=== PATIENT | female | born 1995 | race Caucasian/White ===

== ENCOUNTER 2017-04-18 16:04 | Observation (INO) | payer OTHER, SELFPAY ==
[2017-04-18 16:09] VITALS: BP 140/80; PULSE 98; RESP 20; TEMP 36.7; O2SAT 100; BMI 24.0
--- NOTE | 2017-04-18 16:30 | HMH.EDABDPAI ---
ED Disposition Clinical Impression: Right lower quadrant abdominal pain, Second trimester Disposition: Xfer Short-Term Hosp Condition on Discharge: Good Instructions: DI for Acute Abdomen - Critical Care Critical Care Time: No Attestation: On , the high probability of a clinically significant, sudden or life threatening deterioration of the following system(s) required my full and direct attention, intervention and personal management. The time I documented below is in addition to time spent performing reported procedures but includes the following listed in this critical care notation. Medical Decision Making Vital Signs: 04/18/17 16:09 Temperature 98.0 F Temperature Source Oral Pulse Rate [Right Brachial] 98 H Respiratory Rate 20 Blood Pressure [Right Arm] 140/80 Blood Pressure Mean [Right Arm] 100 Blood Pressure Source [Right Arm] Automatic Cuff Blood Pressure Position [Right Arm] Sitting 02 Sat by Pulse Oximetry 100 Oxygen Delivery Method Room Air - Lab Data Lab Results 04/18/17 16:25: Urine HCG, Qual Positive 04/18/17 16:34: Urine Color Yellow, Urine Appearance Sl cloudy, Urine pH 7.5, Ur Specific [place] 1.020, Urine Protein Negative, Urine Glucose (UA) Negative, Urine Ketones Negative, Urine Blood Negative, Urine Nitrate Positive, Urine Bilirubin Negative, Urine Urobilinogen 0.2, Ur Leukocyte Esterase Trace, Urine WBC 10-20, Ur Squamous Epith Cells 5-10, Urine Bacteria 4+ Orders (Tests/Meds): ED MEDICATIONS Generic Name Dose Route Start Last Admin Trade Name Freq PRN Reason Stop Dose Admin Sodium Chloride 1,000 mls @ 999 mls/hr 04/18/17 17:00 Sod Chlor 0.9% 1000ml Bag IV 04/18/17 18:00 .Q1H1M COUNT INCLUDES THE [facility] ORDERS Category Date Time Status CMP [Comprehensive Metabolic Panel] Stat Lab 04/18/17 16:47 Ordered Complete Blood Count Auto Diff Stat Lab 04/18/17 16:47 Ordered Urine Culture Stat Micro 04/18/17 16:34 Received - Jaime Inquiry Pt receiving controlled substance: No Jaime was queried for this patient: No Medical Decision Making Narrative: I called OB Dr. Haynes on-call who recommended MRI vs US. I spoke with Dr. Courtney the surgeon infection control preventionist who recommended to get an MRI by [facility]. I called Dr. Erika Thomas who accepted the patient at ER for an MRI. The patient and her mother kept updated and they are aware of the transfer plan and the purpose of transfer. Abdominal Pain HPI - General Chief Complaint: Abdominal Pain Stated Complaint: 17 Weeks Preg. Abd Pain Mode of Arrival: Ambulatory Limitations: No Limitations Description of Symptoms (Recalled from ER Triage Doc. by RN): Pt reports sharp intermittent pain in umbilicus area that pt reports happens mainly with movement. states pain has been happening for approx 1 week, pt reports she is 17 weeks . Reports V/D today - History of Present Illness HPI narrative: 22 years old white female 1 para 0 A0. She is 17 weeks , she has been experiencing sharp periumbilical pain for the past week, no bowel movements for 3 days, until this morning when she vomited ?3 and had one bout of loose stool. Patient denies having hemoptysis hematemesis coffee-ground emesis bleeding per rectum or melanotic stool. MD complaint: abdominal pain Onset (ago): day(s) (7 days.) Quality: sharp Radiation: other (jonny- Umbilical) Migration to: no migration Relieving factors: nothing Exacerbating factors: other (sitting and pressure.) Associated symptoms: denies other symptoms - Related Data Home Medications Medication Instructions Recorded Confirmed Vit37/Iron/Folic Acid 1 each PO DAILY 04/18/17 04/18/17 [Prenata Chewable Tablet] Allergies Allergy/AdvReac Type Severity Reaction Status Date / Time No Known Allergies Allergy Unverified 02/16/17 14:19 [facility] History I have reviewed the patient's past medical history: Yes Medi
--- NOTE | 2017-04-18 16:32 | PC.NURSE ---
AILEEN DAVALOS speaking with Dr. Gonzalez, gas station attendant OB
--- NOTE | 2017-04-18 16:35 | PC.NURSE ---
At bs with ER MD at this time, ER MD performed bimanual pelvic exam
[2017-04-18 16:36] LABS: Microscopic, Urine URINE MICROSCOPIC (MICROSCOPIC)
--- NOTE | 2017-04-18 16:36 | ED_ITS ---
ED Disposition Clinical Impression: Right lower quadrant abdominal pain, Second trimester Disposition: Xfer Short-Term Hosp Condition on Discharge: Good Instructions: DI for Acute Abdomen - Critical Care Critical Care Time: No Attestation: On , the high probability of a clinically significant, sudden or life threatening deterioration of the following system(s) required my full and direct attention, intervention and personal management. The time I documented below is in addition to time spent performing reported procedures but includes the following listed in this critical care notation. Medical Decision Making Vital Signs: 04/18/17 16:09 Temperature 98.0 F Temperature Source Oral Pulse Rate [Right Brachial] 98 H Respiratory Rate 20 Blood Pressure [Right Arm] 140/80 Blood Pressure Mean [Right Arm] 100 Blood Pressure Source [Right Arm] Automatic Cuff Blood Pressure Position [Right Arm] Sitting 02 Sat by Pulse Oximetry 100 Oxygen Delivery Method Room Air - Lab Data Lab Results 04/18/17 16:25: Urine HCG, Qual Positive 04/18/17 16:34: Urine Color Yellow, Urine Appearance Sl cloudy, Urine pH 7.5, Ur Specific [place] 1.020, Urine Protein Negative, Urine Glucose (UA) Negative, Urine Ketones Negative, Urine Blood Negative, Urine Nitrate Positive, Urine Bilirubin Negative, Urine Urobilinogen 0.2, Ur Leukocyte Esterase Trace, Urine WBC 10-20, Ur Squamous Epith Cells 5-10, Urine Bacteria 4+ Orders (Tests/Meds): ED MEDICATIONS Generic Name Dose Route Start Last Admin Trade Name Freq PRN Reason Stop Dose Admin Sodium Chloride 1,000 mls @ 999 mls/hr 04/18/17 17:00 Sod Chlor 0.9% 1000ml Bag IV 04/18/17 18:00 .Q1H1M [facility] ORDERS Category Date Time Status CMP [Comprehensive Metabolic Panel] Stat Lab 04/18/17 16:47 Ordered Complete Blood Count Auto Diff Stat Lab 04/18/17 16:47 Ordered Urine Culture Stat Micro 04/18/17 16:34 Received - Jaime Inquiry Pt receiving controlled substance: No Jaime was queried for this patient: No Medical Decision Making Narrative: I called OB Dr. Haynes on-call who recommended MRI vs US. I spoke with Dr. Courtney the surgeon biodiesel production associate who recommended to get an MRI by [facility]. I called Dr. Erika Thomas who accepted the patient at ER for an MRI. The patient and her mother kept updated and they are aware of the transfer plan and the purpose of transfer. Abdominal Pain HPI - General Chief Complaint: Abdominal Pain Stated Complaint: 17 Weeks Preg. Abd Pain Mode of Arrival: Ambulatory Limitations: No Limitations Description of Symptoms (Recalled from ER Triage Doc. by RN): Pt reports sharp intermittent pain in umbilicus area that pt reports happens mainly with movement. states pain has been happening for approx 1 week, pt reports she is 17 weeks . Reports V/D today - History of Present Illness HPI narrative: 22 years old white female 1 para 0 A0. She is 17 weeks , she has been experiencing sharp periumbilical pain for the past week, no bowel movements for 3 days, until this morning when she vomited ?3 and had one bout of loose stool. Patient denies having hemoptysis hematemesis coffee-ground emesis bleeding per rectum or melanotic stool. MD complaint: abdominal pain Onset (ago): day(s) (7 days.) Quality: sh
[2017-04-18 16:38] LABS: Appearance,Urine SL CLOUDY (Clear); Bilirubin,Urine Negative (Negative); Blood, Urine Negative (Negative); Color,Urine YELLOW (Yellow); Glucose,Urine (UA) Negative (Negative); Ketones,Urine Negative (Negative); Leukocyte Esterase,Urine TRACE (Negative); Nitrate,Urine POSITIVE (Negative); PH,Urine 7.5 (5.0-8.5); Protein,Urine Negative (Negative); Urobilinogen,Urine 0.2 EU/dl (0.2)
[2017-04-18 16:45] LABS: Urine Pregnancy, HCG Qual. Positive (Negative)
[2017-04-18 16:45] LABS: Bacteria,Urine 4+ /lpf
--- NOTE | 2017-04-18 16:46 | PC.NURSE ---
AILEEN DAVALOS speaking with DR. Gonzalez, surgeon certified rehabilitation counselor
--- NOTE | 2017-04-18 16:57 | PC.NURSE ---
cathy pillai spoke with dr byers at who accepted pt.
--- NOTE | 2017-04-18 17:08 | PC.NURSE ---
on ob Dr. Gonzalez at bedside at this time.
[2017-04-18 17:10] LABS: Basophils % 0.2 % (0.1-2.0); Eosinophils # 0.1 K/mm3 (0.0-0.4); Eosinophils % 1.5 % (0.1-12.0); Hematocrit 35.1 % (37.0-47.0); Lymphocytes # 2.1 K/mm3 (0.7-4.5); Mean Corpuscular HGB Conc 34.1 g/dL (31.8-35.4); Mean Corpuscular Hemoglobin 30.7 pg (27.0-31.2); Mean Platelet Volume 9.1 fl (7.4-10.4); Monocytes # 0.4 K/mm3 (0.1-1.0); Monocytes % 5.1 % (1.7-9.3); Neutrophils # 5.2 K/mm3 (1.8-7.8); Neutrophils % 66.3 % (37.0-80.0); Platelet Count 184 K/mm3 (142-424); White Blood Count 7.8 K/mm3 (4.8-10.8)
[2017-04-18 17:27] LABS: Alanine Aminotransferase 20 U/L (12-78); Albumin Level 3.3 gm/dL (3.4-5.0); Albumin/Globulin Ratio 0.8 (1.1-1.8); Alkaline Phosphatase 75 U/L (46-116); Aspartate Amino Transferase 10 U/L (15-37); Bilirubin,Total 0.2 mg/dL (0.2-1.0); Blood Urea Nitrogen 12 mg/dL (7-18); Calcium 9.1 mg/dL (8.5-10.1); Carbon Dioxide 25 mmol/L (21.0-32.0); Chloride 101 mmol/L (98-107); Creatinine Clearance Estimated 178 mL/min (0-300); Estimated Glomerular Filt Rate 156 ml/min (>60); GFR (African American) 188 ML/MIN (>60); Glucose 92 mg/dL (74-106); Sodium 134 mmol/L (136-145); Total Protein,Serum 7.3 gm/dL (6.4-8.2)
--- NOTE | 2017-04-18 17:38 | HMH.OBAPHP ---
OB - H&P: HPI Antepartum - History of Present Illness Chief complaint: One week history of worsening right lower quadrant pain with 2days N/V/D Comments: Pt reports pain worse with movement. Positive pain with urination. + frequency. N/V/D x 2 days. Previously had been constipated. No anorexia. No FM felt as yet. One ultrasound thus far in . - History of Present Criteria for establishing EDC:: LMP confirmed by 1st trimester US care: other Obstetrical complications: none Medical complications: none [facility] History I have reviewed the patient's past medical history: Yes (Non-contributory) Medical History: Denies:: Asthma, Diabetes Mellitus Type 1, Diabetes Mellitus Type 2, Hypertension Other Medical History: Reports: Anemia Other Surgeries: Yes: No Previous Surgery - *Social History Smoking Status: Current every day smoker Tobacco Type: cigarettes Alcohol Intake: never - Psychiatric History Expresses thoughts of harming self/others: None Suicide Plan Description: No Plan *Family Hx:: No significant family history : 1 Para: 0 LMP comments: (Pt has received care at [facility]) Review of Systems - Review of Systems Review of systems:: pertinent systems reviewed and negative unless documented below - *Gastrointestinal Reports abdominal pain, Reports change in stools, Reports constipation, Reports loose stools, Reports nausea Meds Home Medications Medication Instructions Recorded Confirmed Type Vit37/Iron/Folic Acid 1 each PO DAILY 04/18/17 04/18/17 History [Prenata Chewable Tablet] Allergies Allergy/AdvReac Type Severity Reaction Status Date / Time No Known Allergies Allergy Unverified 02/16/17 14:19 OB - H&P: Exam - Physical Exam Vital signs: Temp Pulse Resp BP Pulse Ox 98.0 F 98 H 20 140/80 100 04/18/17 16:09 04/18/17 16:09 04/18/17 16:09 04/18/17 16:09 04/18/17 16:09 - Routine Abdominal Exam Present: tenderness. Absent: distended, rebound, guarding Comments: mild TTP RLQ - Routine Exam Comments: Performed by ER physician - Routine Back/Spine/Pelvis Exam Back/Spine: Present: CVA tenderness (mild CVAT right side) OB - A/P Antepartum (1) Right lower quadrant abdominal pain Current visit: Yes Status: Acute 22 yo at 17 weeks per patient with 1 week history of right lower quadrant pain and 2 day history of N/V/D. Previously has had constipation. Also reports pain with urination for several days. No F/C. Normal appetite. Exam and U/A results consistent with mild pyelo. Given likely pyelo (and possible appendicitis), will admit overnight for IV Rocephin. If does not improve, can readdress possibility of appendicitis. Recommend IVH at 125cc/hr Regular diet Doptones q shift IV Rocephin q 24hrs Ultrasound for dating/anatomy in am
--- NOTE | 2017-04-18 17:41 | P.HP_ITS ---
OB - H&P: HPI Antepartum - History of Present Illness Chief complaint: One week history of worsening right lower quadrant pain with 2days N/V/D Comments: Pt reports pain worse with movement. Positive pain with urination. + frequency. N/V/D x 2 days. Previously had been constipated. No anorexia. No FM felt as yet. One ultrasound thus far in . - History of Present Criteria for establishing EDC:: LMP confirmed by 1st trimester US care: other Obstetrical complications: none Medical complications: none [facility] History I have reviewed the patient's past medical history: Yes (Non-contributory) Medical History: Denies:: Asthma, Diabetes Mellitus Type 1, Diabetes Mellitus Type 2, Hypertension Other Medical History: Reports: Anemia Other Surgeries: Yes: No Previous Surgery - *Social History Smoking Status: Current every day smoker Tobacco Type: cigarettes Alcohol Intake: never - Psychiatric History Expresses thoughts of harming self/others: None Suicide Plan Description: No Plan *Family Hx:: No significant family history : 1 Para: 0 LMP comments: (Pt has received care at [facility] ) Review of Systems - Review of Systems Review of systems:: pertinent systems reviewed and negative unless documented below - *Gastrointestinal Reports abdominal pain, Reports change in stools, Reports constipation, Reports loose stools, Reports nausea Meds Home Medications Medication Instructions Recorded Confirmed Type Vit37/Iron/Folic Acid 1 each PO DAILY 04/18/17 04/18/17 History [Prenata Chewable Tablet] Allergies Allergy/AdvReac Type Severity Reaction Status Date / Time No Known Allergies Allergy Unverified 02/16/17 14:19 OB - H&P: Exam - Physical Exam Vital signs: Temp Pulse Resp BP Pulse Ox 98.0 F 98 H 20 140/80 100 04/18/17 16:09 04/18/17 16:09 04/18/17 16:09 04/18/17 16:09 04/18/17 16:09 - Routine Abdominal Exam Present: tenderness. Absent: distended, rebound, guarding Comments: mild TTP RLQ - Routine Exam Comments: Performed by ER physician - Routine Back/Spine/Pelvis Exam Back/Spine: Present: CVA tenderness (mild CVAT right side) OB - A/P Antepartum (1) Right lower quadrant abdominal pain Current visit: Yes Status: Acute 22 yo at 17 weeks per patient with 1 week history of right lower quadrant pain and 2 day history of N/V/D. Previously has had constipation. Also reports pain with urination for several days. No F/C. Normal appetite. Exam and U/A results consistent with mild pyelo. Given likely pyelo (and possible appendicitis), will admit overnight for IV Rocephin. If does not improve, can readdress possibility of appendicitis. Recommend IVH at 125cc/hr Regular diet Doptones q shift IV Rocephin q 24hrs Ultrasound for dating/anatomy in am
--- NOTE | 2017-04-18 17:59 | PC.NURSE ---
Verbal report given to MARY KATE Neely on OB at this time.
[2017-04-18 18:04] LABS: Lactic Acid 0.7 mmol/L (0.4-2.0)
[2017-04-18 18:40] VITALS: BP 135/63; PULSE 89; RESP 18; TEMP 36.7; O2SAT 98
[2017-04-18 19:00] VITALS: BP 121/63; PULSE 83; RESP 18; TEMP 36.7; O2SAT 100; BMI 22.0
[2017-04-19 06:54] LABS: Basophils % 0.2 % (0.1-2.0); Eosinophils # 0.2 K/mm3 (0.0-0.4); Eosinophils % 2.3 % (0.1-12.0); Hematocrit 31.9 % (37.0-47.0); Hemoglobin 10.9 g/dL (12.2-16.2); Lymphocytes # 2.1 K/mm3 (0.7-4.5); Lymphocytes % 32.4 K/mm3 (10-50); Mean Corpuscular HGB Conc 34.1 g/dL (31.8-35.4); Mean Corpuscular Hemoglobin 30.9 pg (27.0-31.2); Mean Corpuscular Volume 90.4 fl (81-99); Mean Platelet Volume 8.8 fl (7.4-10.4); Monocytes # 0.3 K/mm3 (0.1-1.0); Monocytes % 5.1 % (1.7-9.3); Neutrophils # 3.9 K/mm3 (1.8-7.8); Neutrophils % 59.9 % (37.0-80.0); Platelet Count 165 K/mm3 (142-424); Red Blood Count 3.52 M/mm3 (4.20-5.40); Red Cell Distribution Width 13.1 % (11.5-17.5); White Blood Count 6.5 K/mm3 (4.8-10.8)
[2017-04-19 07:02] LABS: Anion Gap 10.9 mEq/L (5-15); Blood Urea Nitrogen 9 mg/dL (7-18); Carbon Dioxide 23 mmol/L (21.0-32.0); Chloride 106 mmol/L (98-107); Creatinine Clearance Estimated 190 mL/min (0-300); Creatinine,Serum 0.43 mg/dL (0.55-1.02); Estimated Glomerular Filt Rate 185 ml/min (>60); GFR (African American) 224 ML/MIN (>60); Glucose 91 mg/dL (74-106); Potassium 3.9 mmoL/L (3.5-5.1); Sodium 136 mmol/L (136-145)
[2017-04-19 08:00] VITALS: BP 107/58; PULSE 74; RESP 18; TEMP 37.1; O2SAT 100
--- NOTE | 2017-04-19 08:00 | US_ITS ---
Exams today include: 1. US OB >= 14 weeks Fetus, 2. Ultrasound kidneys / US retroperitoneal comp 3. US RLQ Ordering Physician: Erik Smalls MD HISTORY 22 years: Female: ITS.REASON: us for dates/anatomy. Right lower quadrant pain. TECHNIQUE/studies: 1 Transabdominal pelvic ultrasound / ultrasound transabdominal scanning 2. Additional Ultrasound images and evaluation region of pain towards RLQ. 3. Bilateral renal ultrasound COMPARISON :None relevant US OB >= 14 weeks Fetus, Single viable intrauterine gestation currently in breech position. Placenta is anterior. Fetus is active anatomy as well seen within normal limits. Normal amount fluid. Close cervix appears overall satisfactory, measuring 3.2 cm in length. Limited survey at this early point in gestation was performed and was unremarkable on the submitted images as in PACS. No discrete anomalies identified on survey imaging by technologist. Active fetus.Three-vessel cord with satisfactory umbilical cord insertion. Survey of brain & ventricles & early images posterior fossa unremarkable neck survey unremarkable.. Limited images of face at this early gestation unremarkable. Cardiac activity documented. Vague images at four-chamber heart in this early gestation included... Abdomen: Both kidneys noted and unremarkable. Stomach noted and satisfactory. Spine Limited images Survey of the spine unremarkable.. Appears to be a male fetus Both arms and legs noted.Amniotic Fluid: Adequate. Maternal adnexa: No significant incidental findings findings encountered. Measurements: Average ultrasound age 17 weeks 0 day. Gestational Age 16 weeks 6 days based on LMP 12/22/2016. Estimated due date by ultrasound age 709/27/2017. Estimated weight currently admitted 175-g +/- 26 grams. BPD = 17 week 1 day OFD = 17 week 4 day HC = 17 week 0 day AC = 17 week 3 day FL = 16 we 3 day Heart Rate = 155 . HC/AC = 1.14.(1.09-1.26.) CI = 75%.(70-86%). FL/BPD is 60%. FL/AC is 18%. ----IMPRESSION 17 week 0 day average ultrasound age breech position Active fetus . Limited Anatomical survey unremarkable & WNL BILATERAL RENAL ULTRASOUND: Ultrasound both kidneys performed kidneys appear satisfactory bilaterally with no significant hydronephrosis or mass. Cortex well-maintained bilaterally with normal color Doppler flow bilateral RIGHT KIDNEY the pelvicalyceal structures are very slightly more generous than the right than left which could reflect some very early hydronephrosis of changes but unimpressive and still within normal limits. Right kidney measures 9.2 x 3.8 x 7 cm LEFT KIDNEY appears normal measures 11 point for x4.2 x 5.5 cm. ---IMPRESSION. Kidneys appear normal bilaterally with the right pelvicalyceal system only slightly more generous than the left May reflect scant early hydronephrosis of changes Right Lower Quadrant Ultrasound Survey was included Imaging here is limited. No generous stool throughout right colon. More echogenic stool at the mid right colon with more hypoechoic Semisolid stool towards the ileocecal valve region and tip of the cecum. Also note some liquid along posterior cecum region.-Curious appearance here in the pain progresses this may require follow-up. However no findings highly suspect for abscess or definite appendicitis.. . No area of focal wall thickening.Note normal white count Patient did have some rebound with scanning this region thus warrants close clinical follow-up will be important.. Findings were discussed with both Dr. Pizarro and Dr. Smalls.. Images document Fluid-filled distal small bowel loops wi
--- NOTE | 2017-04-19 08:04 | PC.NURSE ---
PATIENT NOW LEAVING OFF THE UNIT WITH ASHLEY FROM RADIOLOGY FOR HER US OF THE FETUS AND HER KIDNEYS.
--- NOTE | 2017-04-19 08:55 | PC.NURSE ---
PATIENT IS NOW BACK FROM RADIOLOGY, THE RESULTS WILL BE CALLED TO DR. HAMILTON, THE US DID SHOW THAT THE BABY IS A BOY.
--- NOTE | 2017-04-19 11:48 | P.DS_ITS ---
General - General Admission date: 04/18/17 Discharge date: 04/19/17 HPI HPI: She is a 22-year-old 1 now para 0 who was 17 weeks gestational age. She has not had any care. She had a 2 history of nausea vomiting and dehydration. She had dysuria. She has a history of constipation. Objective Vital signs: Temp Pulse Resp BP Pulse Ox 98.7 F 74 18 107/58 100 04/19/17 08:00 04/19/17 08:00 04/19/17 08:00 04/19/17 08:00 04/19/17 08:00 no acute distress Hospital Course Hospital Course: She received IV fluids as well as IV Rocephin. She ultrasound today that was essentially normal. There was no evidence of hydronephrosis and her appendix although not well visualized on ultrasound did not appear to be prominent. She still has some mild right lower quadrant pain but she also has constipation. She denies any fever or chills. Her blood cell count. She will be discharged home to follow-up with me in a couple weeks time. She was given instructions to return if she has worsening of her right lower quadrant pain. We still cannot rule out appendicitis. She is however eating and drinking and ambulating now. Results Labs on day of discharge: Labs from last 24 hours 04/19/17 04/19/17 06:30 06:30 WBC 6.5 RBC 3.52 L Hgb 10.9 L Hct 31.9 L MCV 90.4 MCH 30.9 MCHC 34.1 RDW 13.1 Plt Count 165 MPV 8.8 Neut % (Auto) 59.9 Lymph % (Auto) 32.4 [place] % (Auto) 5.1 Eos % (Auto) 2.3 Baso % (Auto) 0.2 Neut # (Auto) 3.9 Lymph # (Auto) 2.1 [place] # (Auto) 0.3 Eos # (Auto) 0.2 Baso # (Auto) 0.0 Sodium 136 Potassium 3.9 Chloride 106 Carbon Dioxide 23 Anion Gap 10.9 BUN 9 Creatinine 0.43 L Estimated Creat Clear 190 Estimated GFR 185 Est GFR ( Amer) 224 Glucose 91 Discharge Plan - Patient Discharge Instructions ACTIVITY: Continue current activity DIET: continue same diet - Follow up Plan Follow up with: Alex Hodges MD [Staff Physician] - Disposition: Home, Self-[facility] Medications: Home Medications Medication Instructions Recorded Confirmed Type Vit37/Iron/Folic Acid 1 each PO DAILY 04/18/17 04/18/17 History [Prenata Chewable Tablet] Prescriptions/Medication Reconciliation: Continue Vit37/Iron/Folic Acid [Prenata Chewable Tablet] 1 each PO DAILY
[2017-04-19 12:20] LABS: Basophils % 0.1 % (0.1-2.0); Eosinophils # 0.1 K/mm3 (0.0-0.4); Eosinophils % 1.8 % (0.1-12.0); Hematocrit 31.5 % (37.0-47.0); Hemoglobin 10.9 g/dL (12.2-16.2); Lymphocytes # 1.7 K/mm3 (0.7-4.5); Lymphocytes % 26.4 K/mm3 (10-50); Mean Corpuscular HGB Conc 34.7 g/dL (31.8-35.4); Mean Corpuscular Volume 89.5 fl (81-99); Mean Platelet Volume 9.1 fl (7.4-10.4); Monocytes # 0.3 K/mm3 (0.1-1.0); Monocytes % 4.1 % (1.7-9.3); Neutrophils # 4.3 K/mm3 (1.8-7.8); Neutrophils % 67.6 % (37.0-80.0); Platelet Count 182 K/mm3 (142-424); Red Blood Count 3.52 M/mm3 (4.20-5.40); White Blood Count 6.4 K/mm3 (4.8-10.8)
[2017-04-20 08:21] LABS: HIV Screen 4th Generation wRfx Non Reactive (Non Reactive)
[2017-04-21 06:37] LABS: Hepatitis C Antibody 0.2 s/co ratio (0.0-0.9)
[2017-04-21 06:38] LABS: Hepatitis B Surface Antigen Negative (Negative); Rapid Plasma Reagin Ab Titer Non Reactive (NonRea<1:1); Rubella Antibodies, IgG <0.90 index (Immune >0.99)
== END 2017-04-19 12:53 | disposition home or self-care (01) ==
LOC: ER 16:58 → OB 17:20
PROVIDERS: Nurse Practitioner Obstetrics & Gynecology; Admitting Provider Obstetrics & Gynecology; Emergency Provider Emergency Medicine; Visit Provider Obstetrics & Gynecology
DX: R30.0 Dysuria (principal); O21.0 Mild hyperemesis gravidarum; Z3A.17 17 weeks gestation of pregnancy; Z11.4 Encounter for screening for human immunodeficiency virus [HIV]
CPT/HCPCS: 36415; 76770; 76805; 80048; 80053; 81001; 81025; 83605; 85025; 86592; 86703; 86762; 86850; 87040; 87086; 87088; 87186; 87340; 87380; 96365; 96367; 96374; 99283; G0378; G0432

== ENCOUNTER → 2017-05-13 14:52 | Outpatient (CLI) | payer OTHER, SELFPAY ==
--- NOTE | 2017-05-13 14:57 | US_ITS ---
US OB /maternal detail: INDICATION: Anatomy scan evaluation ITS.REASON: US OB Complete ORDERING PHYSICIAN: Alex Hodges MD PATIENT AGE: 22 years TECHNIQUE: ultrasound transabdominal scanning. COMPARISON: No previous relevant studies. FINDINGS: Single viable intrauterine gestation. breech position. Placenta: anterior placenta grade 1. There is adequate amount fluid. The cervix appears satisfactory. Closed and measuring 3 cm in length. Complete survey performed and was unremarkable on the submitted images as in PACS. No discrete anomalies identified on survey imaging by technologist. Active fetus. Three-vessel cord with satisfactory umbilical cord insertion. 4- chamber heart noted. Survey of brain & ventricles. Face and neck survey unremarkable. Diaphragm and chest views unremarkable. Abdomen: Both kidneys noted and unremarkable. Stomach noted and satisfactory. Spine: Survey of the spine satisfactory with no anomalies identified nor imaged. Both arms and legs noted. Amniotic Fluid: Adequate. Maternal adnexa: No significant findings. Measurements: Average ultrasound age 20w4d. Gestational Age 20w2d. Estimated due date by ultrasound age 0709/26/2017. Estimated weight 367 grams. This is 66 percentile BPD = 20w5d OFD = 21w0d HC = 20w1d AC = 21w0d FL = 20w3d Heart Rate = 144 Cerebellum = 21w0d Humerus = 20w5d HC/AC is 1.11 (1.09-1.26). CI is 77% (70-86%). FL/BPD is 69%. FL/AC is 21%. IMPRESSION: Live intrauterine at 20 weeks 4 days with an estimated due date of 09/26/2017. Fetus is in breech position and is active. No anatomical abnormalities apparent. Anterior placenta. See above for detail
[2017-05-13 16:51] LABS: Basophils % 0.2 % (0.1-2.0); Eosinophils # 0.1 K/mm3 (0.0-0.4); Eosinophils % 1.9 % (0.1-12.0); Hematocrit 33.2 % (37.0-47.0); Lymphocytes # 1.5 K/mm3 (0.7-4.5); Lymphocytes % 23.5 K/mm3 (10-50); Mean Corpuscular HGB Conc 33.3 g/dL (31.8-35.4); Mean Corpuscular Hemoglobin 31.2 pg (27.0-31.2); Mean Corpuscular Volume 93.7 fl (81-99); Monocytes # 0.4 K/mm3 (0.1-1.0); Monocytes % 5.4 % (1.7-9.3); Neutrophils # 4.5 K/mm3 (1.8-7.8); Neutrophils % 69.1 % (37.0-80.0); Platelet Count 175 K/mm3 (142-424); Red Blood Count 3.54 M/mm3 (4.20-5.40); Red Cell Distribution Width 13.1 % (11.5-17.5); White Blood Count 6.5 K/mm3 (4.8-10.8)
[2017-05-15 18:27] LABS: HIV Screen 4th Generation wRfx Non Reactive (Non Reactive); Hepatitis B Surface Antigen Negative (Negative); Hepatitis C Antibody <0.1 s/co ratio (0.0-0.9); Rapid Plasma Reagin Ab Titer Non Reactive (NonRea<1:1); Rubella Antibodies, IgG <0.90 index (Immune >0.99)
== END ==
PROVIDERS: Visit Provider Nurse Practitioner Obstetrics & Gynecology
DX: Z36.0 Encounter for antenatal screening for chromosomal anomalies (principal); Z34.90 Encounter for supervision of normal pregnancy, unspecified, unspecified trimester
CPT/HCPCS: 36415; 76811; 85025; 86592; 86703; 86762; 86850; 87340; 87380; G0432

== ENCOUNTER 2017-05-23 21:04 | Outpatient (CLI) | payer OTHER, SELFPAY ==
[2017-05-23 21:19] VITALS: BMI 22.6
[2017-05-23 21:34] LABS: Microscopic, Urine URINE MICROSCOPIC (MICROSCOPIC)
[2017-05-23 21:37] LABS: Appearance,Urine CLOUDY (Clear); Bilirubin,Urine Negative (Negative); Blood, Urine Negative (Negative); Color,Urine YELLOW (Yellow); Glucose,Urine (UA) Negative (Negative); Ketones,Urine Negative (Negative); Leukocyte Esterase,Urine Negative (Negative); Nitrate,Urine Negative (Negative); PH,Urine 8.5 (5.0-8.5); Protein,Urine Negative (Negative); Urobilinogen,Urine 0.2 EU/dl (0.2)
[2017-05-23 21:43] VITALS: BP 114/69; PULSE 87; RESP 17; TEMP 36.4; O2SAT 98; BMI 22.6
[2017-05-23 21:43] LABS: Amphetamine/Metha Screen,Urine Negative ng/mL (<1000); Barbiturates Screen,Urine Negative ng/mL (<200); Benzodiazepines Screen,Urine Negative ng/mL (200); Cannabinoid Screen,Urine Negative ng/mL (<50); Cocaine Screen,Urine Negative ng/g (<300); Methadone Screen,Urine Negative ng/mL (<300); Opiate Screen,Urine Negative ng/mL (<300); Phencyclidine Screen,Urine Negative ng/mL (<25)
[2017-05-23 21:49] LABS: Amorphous Sediment,Urine 4+ /lpf
== END 2017-05-23 23:15 | disposition home or self-care (01) ==
LOC: OBOUT 21:06 → OB 21:07
PROVIDERS: PCP Family Medicine; Visit Provider Obstetrics & Gynecology
DX: O26.892 Other specified pregnancy related conditions, second trimester (principal); Z3A.21 21 weeks gestation of pregnancy; R10.84 Generalized abdominal pain
CPT/HCPCS: 59025; 80305; 81001

== ENCOUNTER 2017-06-15 20:46 | Outpatient (CLI) | payer OTHER, SELFPAY ==
[2017-06-15 20:49] VITALS: BP 121/69; PULSE 87; RESP 18; TEMP 36.6; O2SAT 99; BMI 24.0
[2017-06-15 21:15] VITALS: BMI 24.7
[2017-06-15 21:26] LABS: Amphetamine/Metha Screen,Urine Negative ng/mL (<1000); Barbiturates Screen,Urine Negative ng/mL (<200); Benzodiazepines Screen,Urine Negative ng/mL (200); Cannabinoid Screen,Urine Negative ng/mL (<50); Cocaine Screen,Urine Negative ng/g (<300); Methadone Screen,Urine Negative ng/mL (<300); Opiate Screen,Urine Negative ng/mL (<300); Phencyclidine Screen,Urine Negative ng/mL (<25)
[2017-06-15 21:28] LABS: Fetal Membrane Rupture (Rapid) Negative (Negative)
[2017-06-15 22:05] LABS: Appearance,Urine SL CLOUDY (Clear); Bilirubin,Urine Negative (Negative); Blood, Urine Negative (Negative); Color,Urine YELLOW (Yellow); Glucose,Urine (UA) Negative (Negative); Ketones,Urine Negative (Negative); Leukocyte Esterase,Urine Negative (Negative); Microscopic, Urine URINE MICROSCOPIC (MICROSCOPIC); Nitrate,Urine Negative (Negative); Protein,Urine Negative (Negative); Urobilinogen,Urine 0.2 EU/dl (0.2)
[2017-06-16 01:00] LABS: Amorphous Sediment,Urine 1+ /lpf; Bacteria,Urine 1+ /lpf
== END 2017-06-15 22:39 | disposition home or self-care (01) ==
LOC: OBOUT 20:48 → OB 20:49
PROVIDERS: PCP Nurse Practitioner Obstetrics & Gynecology; Visit Provider Nurse Practitioner Obstetrics & Gynecology
DX: O42.912 Preterm premature rupture of membranes, unspecified as to length of time between rupture and onset of labor, second trimester (principal); Z3A.25 25 weeks gestation of pregnancy
CPT/HCPCS: 59025; 80305; 81001; 84112; 87086

== ENCOUNTER 2017-07-06 22:33 | Outpatient (CLI) | payer OTHER, SELFPAY ==
[2017-07-06 22:43] VITALS: BMI 24.9
[2017-07-06 22:49] LABS: Appearance,Urine CLEAR (Clear); Bilirubin,Urine Negative (Negative); Blood, Urine 3+ (Negative); Color,Urine YELLOW (Yellow); Glucose,Urine (UA) Negative (Negative); Ketones,Urine Negative (Negative); Leukocyte Esterase,Urine 2+ (Negative); Microscopic, Urine URINE MICROSCOPIC (MICROSCOPIC); Nitrate,Urine Negative (Negative); Protein,Urine TRACE (Negative); Urobilinogen,Urine 0.2 EU/dl (0.2)
[2017-07-06 22:54] VITALS: BP 124/71; PULSE 86; RESP 22; TEMP 36.6; O2SAT 97; BMI 26.4
[2017-07-06 22:58] LABS: Amphetamine/Metha Screen,Urine Negative ng/mL (<1000); Barbiturates Screen,Urine Negative ng/mL (<200); Benzodiazepines Screen,Urine Negative ng/mL (200); Cannabinoid Screen,Urine Negative ng/mL (<50); Cocaine Screen,Urine Negative ng/g (<300); Methadone Screen,Urine Negative ng/mL (<300); Opiate Screen,Urine Negative ng/mL (<300); Phencyclidine Screen,Urine Negative ng/mL (<25)
[2017-07-06 23:03] LABS: Amorphous Sediment,Urine 1+ /lpf; RBC,Urine TNTC #/hpf (0-3); Sperm,Urine OCC /lpf
--- NOTE | 2017-07-06 23:30 | US_ITS ---
US OB limited position: Indication: ITS.REASON: 28 weeks vaginal bleeding and pelvic pain. ORDERING PHYSICIAN: Erik Smalls MD PATIENT AGE: 22 years COMPARISON: 05/13/2017 FINDINGS: There is a single live fetus present in breech presentation. heart and body motion noted with an FHR 1 58 bpm. Cervix is closed and measures 3.4 cm. Placenta is anterior and grade 1. No previa or fraction. BPD corresponds to a gestational age of 27 weeks 2 days. Average amount of amniotic fluid volume. IMPRESSION: Live IUP in breech presentation with a BPD of 27 weeks 2 days. heart and body motion noted. Anterior placenta. No previa or abruption
== END 2017-07-07 00:43 | disposition home or self-care (01) ==
LOC: OBOUT 22:36 → OB 22:37
PROVIDERS: PCP Nurse Practitioner Obstetrics & Gynecology; Visit Provider Obstetrics & Gynecology
DX: O20.9 Hemorrhage in early pregnancy, unspecified (principal); Z3A.28 28 weeks gestation of pregnancy; R10.9 Unspecified abdominal pain
CPT/HCPCS: 59025; 76815; 80305; 81001; 87086

== ENCOUNTER 2017-07-23 22:37 | Outpatient (CLI) | payer OTHER, SELFPAY ==
[2017-07-23 23:06] VITALS: BP 123/71; PULSE 85; RESP 18; TEMP 36.8; BMI 28.2
[2017-07-23 23:34] VITALS: BMI 30.2
[2017-07-23 23:55] LABS: Microscopic, Urine URINE MICROSCOPIC (MICROSCOPIC)
[2017-07-23 23:56] LABS: Appearance,Urine CLEAR (Clear); Bilirubin,Urine Negative (Negative); Blood, Urine Negative (Negative); Color,Urine YELLOW (Yellow); Glucose,Urine (UA) Negative (Negative); Ketones,Urine Negative (Negative); Leukocyte Esterase,Urine Negative (Negative); Nitrate,Urine Negative (Negative); PH,Urine 6.5 (5.0-8.5); Protein,Urine Negative (Negative); Specific Gravity, Urine 1.025 (1.005-1.030)
[2017-07-23 23:58] LABS: Hematocrit 34.2 % (37.0-47.0); Hemoglobin 11.4 g/dL (12.2-16.2)
[2017-07-24] LABS: Amorphous Sediment,Urine Trace /lpf
[2017-07-24 00:03] LABS: Amphetamine/Metha Screen,Urine Negative ng/mL (<1000); Barbiturates Screen,Urine Negative ng/mL (<200); Benzodiazepines Screen,Urine Negative ng/mL (200); Cannabinoid Screen,Urine Negative ng/mL (<50); Cocaine Screen,Urine Negative ng/g (<300); Methadone Screen,Urine Negative ng/mL (<300); Opiate Screen,Urine Negative ng/mL (<300); Phencyclidine Screen,Urine Negative ng/mL (<25)
== END 2017-07-24 01:04 | disposition home or self-care (01) ==
LOC: OBOUT 22:40 → OB 22:40
PROVIDERS: PCP Nurse Practitioner Obstetrics & Gynecology; Visit Provider Obstetrics & Gynecology
DX: O47.03 False labor before 37 completed weeks of gestation, third trimester (principal); Z3A.30 30 weeks gestation of pregnancy
CPT/HCPCS: 36415; 59025; 80305; 81001; 85014; 85018

== ENCOUNTER 2017-08-29 15:52 | Inpatient (IN) ==
[2017-08-29 16:59] LABS: Microscopic, Urine URINE MICROSCOPIC (MICROSCOPIC)
[2017-08-29 17:03] LABS: Appearance,Urine CLOUDY (Clear); Bilirubin,Urine Negative (Negative); Blood, Urine 3+ (Negative); Color,Urine YELLOW (Yellow); Glucose,Urine (UA) Negative (Negative); Ketones,Urine Negative (Negative); Leukocyte Esterase,Urine 1+ (Negative); PH,Urine 7.5 (5.0-8.5); Protein,Urine 2+ (Negative)
[2017-08-29 17:04] LABS: Basophils % 0.1 % (0.1-2.0); Eosinophils # 0.1 K/mm3 (0.0-0.4); Eosinophils % 0.9 % (0.1-12.0); Hematocrit 35.3 % (37.0-47.0); Hemoglobin 11.7 g/dL (12.2-16.2); Lymphocytes # 1.3 K/mm3 (0.7-4.5); Lymphocytes % 13.4 K/mm3 (10-50); Mean Corpuscular HGB Conc 33.2 g/dL (31.8-35.4); Mean Corpuscular Hemoglobin 30.5 pg (27.0-31.2); Mean Corpuscular Volume 91.7 fl (81-99); Mean Platelet Volume 11.1 fl (7.4-10.4); Monocytes # 0.5 K/mm3 (0.1-1.0); Monocytes % 5.3 % (1.7-9.3); Neutrophils # 7.5 K/mm3 (1.8-7.8); Neutrophils % 80.3 % (37.0-80.0); Platelet Count 180 K/mm3 (142-424); Red Blood Count 3.85 M/mm3 (4.20-5.40); Red Cell Distribution Width 13.1 % (11.5-17.5); White Blood Count 9.4 K/mm3 (4.8-10.8)
[2017-08-29 17:12] LABS: Bacteria,Urine 4+ /lpf; Squamous Epithelial Cell,Urine 20-50 #/hpf (0-5); WBC,Urine 20-50 #/hpf (0-3)
[2017-08-29 17:18] LABS: Amphetamine/Metha Screen,Urine Negative ng/mL (<1000); Barbiturates Screen,Urine Negative ng/mL (<200); Benzodiazepines Screen,Urine Negative ng/mL (<200); Cannabinoid Screen,Urine Negative ng/mL (<50); Cocaine Screen,Urine Negative ng/mL (<300); Methadone Screen,Urine Negative ng/mL (<300); Opiate Screen,Urine Negative ng/mL (<300); Phencyclidine Screen,Urine Negative ng/mL (<25)
--- NOTE | 2017-08-29 19:24 | History & Physical Report ---
OB - H&P: HPI Antepartum - History of Present Illness Chief complaint: contractions, vaginal bleeding in History of present illness: 22 yo G1 @ 35 5/7 presented to triage with complaint of vaginal bleeding and contractions. Upon evaluation, cervical exam 4-/-1 with dark bloody show. No evidence of gross ROM and no acute/active hemorrhage. NST reactive/reassuring. She is admitted with a diagnosis of active labor and started on ampicillin for GBS prophylaxis. complicated by scant care (2 visits only), Rh negative maternal status with no rhogam administration, tobacco abuse 1PPD, Rubella non- immune maternal status and mild anemia (Hgb 11.7). Maternal GBS status unknown. Antibody screen negative at admission, with no evidence of iso- immunization during this . labs reviewed and within normal limits other than noted above. UDS negative on admission today. - History of Present care: limited care Narrative: As per HPI documentation - Labs Blood type: A (-) negative Rubella: nonimmune RPR/VDRL: nonreactive GBS status: unknown HBsAG: negative [facility] History Medical History: Denies:: Asthma, Cancer, Diabetes Mellitus Type 1, Diabetes Mellitus Type 2, Hypertension, MRSA Other Medical History: Reports: Anemia Other Surgeries: Yes: No Previous Surgery. No: Amputation: No Fractures: No - *Social History Smoking Status: Current every day smoker Tobacco Type: cigarettes # Packs/Day (cigarettes): 1 Alcohol Intake: never Substance Use Type: denies use Occupational Status: employed *Family Hx:: No significant family history OPERATING ROOM RN history: No OPERATING ROOM RN history Para: 0 Review of Systems - Review of Systems Review of systems:: pertinent systems reviewed and negative unless documented below - Constitutional Denies chills, Denies fever(s) - Eyes Denies blurry vision, Denies double vision, Denies floaters - ENT Denies bleeding gums, Denies mouth lesions - *Cardiovascular Denies chest pain, Denies shortness of breath, Denies rapid, pounding, or irregular heartbeat - *Respiratory Denies cough, Denies shortness of breath - *Gastrointestinal Denies abdominal pain, Denies constipation, Denies loose stools, Denies nausea, Denies vomiting - *Genitourinary Denies abnormal vaginal bleeding Comments: + regular contractions - *Musculoskeletal Reports back pain - Integumentary/Breasts Denies rash, Denies breast pain, Denies nipple discharge - *Neurologic Denies dizziness, Denies headache(s), Denies other visual disturbances, Denies tingling/numbness/burning sensations - Psychiatric Denies anxiety, Denies depression - Endocrine Denies cold intolerance, Denies excessive sweating, Denies heat intolerance - Hematologic/Lymphatic Denies easy bleeding, Denies easy bruising Meds Home Medications Medication Instructions Recorded Confirmed Type Vit37/Iron/Folic Acid 1 each PO DAILY 04/18/17 08/29/17 History [Prenata Chewable Tablet] Ferrous Sulfate 325 mg PO DAILY 06/30/17 08/29/17 History Allergies Allergy/AdvReac Type Severity Reaction Status Date / Time No Known Allergies Allergy Verified 08/29/17 16:42 OB - H&P: Exam - Physical Exam Vital signs: Temp Pulse Resp BP Pulse Ox 97.5 F L 108 H 22 140/71 98 08/29/17 16:20 08/29/17 16:20 08/29/17 16:20 08/29/17 16:20 08/29/17 16:20 - Constitutional no acute distress, average body habitus, cooperative - Routine HEENT Exam Head: Present: normocephalic, atraumatic Eye: Absent: conjunctival icterus, scleral injection ENT: Present: mucous membranes moist - Routine Neck Exam Absent: thyromegaly - Routine Respiratory Exam Present: CTA bilaterally. Absent: decreased breath sounds, respiratory distress , wheezes - Routine Cardiovascular Exam Present: RRR. Absent: tachycardia - Routine Abdominal Exam Present: soft. Absent: tenderness, distended, guarding - Routine Exam External: Absent: erythema, tenderness, lesions Perineal: Absent: erythema, tenderness Comments: cervix 6/100/0, BBOW - Routine Extremities Exam Absent: edema, tenderness - Routine Back/Spine/Pelvis Exam Back/Spine: Absent: CVA tenderness - Routine Skin Exam Present: intact, dry, warm. Absent: rash - Routine Neurological Exam Present: alert, oriented X3. Absent: altered mental status - Routine Psychiatric Exam Present: normal affect, cooperative. Absent: depressed, anxious - Additional findings NST: 140 baseline, normal variability, reactive. No decelerations. - Detailed Labor and Delivery Exam Dilation (cm): 6 Effacement (%): 100 Cervix position: mid station: 0 Consistency: soft Membranes: articially ruptured (AROM without complication; clear fluid. IUPC placed without difficulty.) Amniotic fluid: clear Baseline heart rate: 140 monitor accelerations: Present monitor decelerations: None Contraction frequency (min): 3 Contraction duration (sec): 60 Tachysystole: No Contraction intensity: Strong/Firm OB - Results - Labs Labs: Short CBC 08/29/17 Range/Units 16:50 WBC 9.4 (4.8-10.8) K/mm3 Hgb 11.7 L (12.2-16.2) g/dL Hct 35.3 L (37.0-47.0) % Plt Count 180 (142-424) K/mm3 Urine 08/29/17 Range/Units 16:00 Urine Color Yellow (Yellow) Urine Appearance Cloudy (Clear) Urine pH 7.5 (5.0-8.5) Ur Specific [place] 1.020 (1.005-1.030) Urine Protein 2+ (Negative) Urine Glucose (UA) Negative (Negative) OB - A/P Antepartum (1) with 35 completed weeks gestation Current visit: Yes Status: Acute 35 5/7 weeks (2) Active labor Current visit: Yes Status: Acute Admission for labor; anticipate . (3) Insufficient care Current visit: Yes Status: Acute SW consult . UDS negative on admission. (4) Rh negative status during in third trimester Current visit: Yes Status: Acute Rhogam not administered during due to non-compliance and insufficient care. Antibody screen negative on admission; no documentation of iso- immunization during . (5) Medication not administered Current visit: Yes Status: Acute cord blood collection at delivery to determine need for Rhogam adnministration . (6) Rubella non-immune status, antepartum Current visit: Yes Status: Acute MMR administration (7) Anemia complicating in third trimester Current visit: Yes Status: Acute Repeat H/H PPD #1. FeSO4 supplementation with PNV. (8) Screening for group B Streptococcus not performed Current visit: Yes Status: Acute Ampicillin prophylaxis until delivery (9) Smoking (tobacco) complicating , third trimester Current visit: Yes Status: Acute Tobacco cessation
--- NOTE | 2017-08-29 22:38 | Progress Note ---
Delivery date: 08/29/17 Procedure: Spontaneous vaginal delivery of vigorous live-born male over intact perineum. No nuchal cord or shoulder dystocia noted at delivery. Infant delivered in controlled fashion without complication and handed off to awaiting nurses following clamp/cut of umbilical cord. Placenta spontaneously delivered and noted to be intact. Apgars 7 & 9 (1 & 5 min). Second degree perineal laceration repaired with 2-0 vicryl in layers. Bilateral superficial labial lacerations hemostatic and no repair needed. All counts correct. EBL: 250cc. Disposition: Mom/baby stable to recovery. Placenta sent to pathology. Events: No Care (limited care--2 visits), Labor < 37 Weeks (35 5/7) Delivery augmentation: rupture of membranes, pitocin Delivery monitor: external FHT, internal uterine Route of delivery: Laceration description: Vaginal - 2nd Degree (2nd degree perineal and bilateral superficial labial) Delivery repair: vicryl Estimated blood loss (mL): 250 Disposition: floor Complications: none
[2017-08-30 06:09] LABS: Hematocrit 32.4 % (37.0-47.0); Hemoglobin 10.9 g/dL (12.2-16.2)
--- NOTE | 2017-08-30 12:30 | Progress Note ---
Internal Medicine - PN: Subj *Date: 08/30/17 *Time: 12:26 Interval history: PPD #1 No complaints Lochia less than menses Exam Vital signs and Labs for Last 24 Hours: Temp Pulse Resp BP Pulse Ox 97.5 F L 108 H 22 140/71 98 08/29/17 16:20 08/29/17 16:20 08/29/17 16:20 08/29/17 16:20 08/29/17 16:20 Laboratory Results - last 24 hr 08/29/17 16:00: Urine Color Yellow, Urine Appearance Cloudy, Urine pH 7.5, Ur Specific [place] 1.020, Urine Protein 2+, Urine Glucose (UA) Negative, Urine Ketones Negative, Urine Blood 3+, Urine Nitrate Negative, Urine Bilirubin Negative, Urine Urobilinogen 2.0, Ur Leukocyte Esterase 1+ A, Urine RBC 10-20, Urine WBC 20-50, Ur Squamous Epith Cells 20-50, Urine Bacteria 4+ 08/29/17 16:00: Urine Opiates Screen Negative, Urine Methadone Screen Negative, Ur Barbituates Screen Negative, Ur Phencyclidine Scrn Negative, Ur Amphetamines Screen Negative, U Benzodiazepines Scrn Negative, Urine Cocaine Screen Negative , U Marijuana (THC) Screen Negative 08/29/17 16:50: Blood Type A Negative, Antibody Screen Negative 08/29/17 16:50: WBC 9.4, RBC 3.85 L, Hgb 11.7 L, Hct 35.3 L, MCV 91.7, MCH 30.5 , MCHC 33.2, RDW 13.1, Plt Count 180, MPV 11.1 H, Neut % (Auto) 80.3 H, Lymph % (Auto) 13.4, [place] % (Auto) 5.3, Eos % (Auto) 0.9, Baso % (Auto) 0.1, Neut # ( Auto) 7.5, Lymph # (Auto) 1.3, [place] # (Auto) 0.5, Eos # (Auto) 0.1, Baso # (Auto ) 0.0 08/29/17 21:57: Blood Type Cancelled, Direct Antiglob Test Cancelled 08/30/17 05:30: Hgb 10.9 L, Hct 32.4 L 08/30/17 05:30: Blood Type A Negative, Antibody Screen Negative, Screen Negative, Baby's Rh Status Positive 08/30/17 07:52: Rhogam Infusion Rhogam release I & O for Last 24 hours: Intake & Output 08/28/17 08/29/17 08/30/17 08/31/17 11:59 11:59 11:59 11:59 Weight 167 lb Microbiology Reports for the Last 24 Hours: Microbiology 08/29/17 16:00 Urine,Clean Catch Urine Culture - Final Multiple organisms, suggests contamination. - Constitutional no acute distress - *Routine HEENT Exam Head: Present: normocephalic, atraumatic - *Routine Respiratory Exam Absent: respiratory distress - *Routine Abdominal Exam Present: soft. Absent: tenderness, distended - *Routine Extremities Exam Absent: edema - *Routine Skin Exam Present: intact, dry, warm Assessment and Plan (1) with 35 completed weeks gestation Current visit: Yes Status: Acute Category: Medical Code(s): Z3A.35 - 35 weeks gestation of (2) Active labor Current visit: Yes Status: Acute Category: Medical Code(s): O60.10X0 - labor with delivery, unspecified trimester, not applicable or unspecified (3) Insufficient care Current visit: Yes Status: Acute Category: Medical Code(s): O09.30 - Supervision of with insufficient care, unspecified trimester (4) Rh negative status during in third trimester Current visit: Yes Status: Acute Category: Medical Code(s): O09.893 - Supervision of other high risk pregnancies, third trimester; Z67.91 - Unspecified blood type, Rh negative (5) Medication not administered Current visit: Yes Status: Acute Category: Medical (6) Rubella non-immune status, antepartum Current visit: Yes Status: Acute Category: Medical Code(s): O99.89 - Other specified diseases and conditions complicating , childbirth and the puerperium; Z28.3 - Underimmunization status (7) Anemia complicating in third trimester Current visit: Yes Status: Acute Category: Medical Code(s): O99.013 - Anemia complicating , third trimester (8) Screening for group B Streptococcus not performed Current visit: Yes Status: Acute Category: Medical (9) Smoking (tobacco) complicating , third trimester Current visit: Yes Status: Acute Category: Medical Code(s): O99.333 - Smoking (tobacco) complicating , third trimester (10) Vaginal delivery Current visit: Yes Status: Acute Category: Medical Code(s): O80 - Encounter for full-term uncomplicated delivery - Assessment and plan all Dx Assessment and Plan for all problems:: Routine care Anticipate discharge after 48 hours due to premature infant
--- NOTE | 2017-08-31 10:25 | Progress Note ---
Internal Medicine - PN: Subj *Date: 08/31/17 *Time: 10:24 (. Uterine fundus involuting well. Her baby is being kept an extra day and she will be discharged tomorrow.) Exam Vital signs and Labs for Last 24 Hours: Temp Pulse Resp BP Pulse Ox 97.5 F L 108 H 22 140/71 98 08/29/17 16:20 08/29/17 16:20 08/29/17 16:20 08/29/17 16:20 08/29/17 16:20 I & O for Last 24 hours: Intake & Output 08/28/17 08/29/17 08/30/17 08/31/17 11:59 11:59 11:59 11:59 Weight 167 lb Microbiology Reports for the Last 24 Hours: Microbiology 08/29/17 16:00 Urine,Clean Catch Urine Culture - Final Multiple organisms, suggests contamination. Assessment and Plan (1) with 35 completed weeks gestation Current visit: Yes Status: Acute Category: Medical Code(s): Z3A.35 - 35 weeks gestation of (2) Active labor Current visit: Yes Status: Acute Category: Medical Code(s): O60.10X0 - labor with delivery, unspecified trimester, not applicable or unspecified (3) Insufficient care Current visit: Yes Status: Acute Category: Medical Code(s): O09.30 - Supervision of with insufficient care, unspecified trimester (4) Rh negative status during in third trimester Current visit: Yes Status: Acute Category: Medical Code(s): O09.893 - Supervision of other high risk pregnancies, third trimester; Z67.91 - Unspecified blood type, Rh negative (5) Medication not administered Current visit: Yes Status: Acute Category: Medical (6) Rubella non-immune status, antepartum Current visit: Yes Status: Acute Category: Medical Code(s): O99.89 - Other specified diseases and conditions complicating , childbirth and the puerperium; Z28.3 - Underimmunization status (7) Anemia complicating in third trimester Current visit: Yes Status: Acute Category: Medical Code(s): O99.013 - Anemia complicating , third trimester (8) Screening for group B Streptococcus not performed Current visit: Yes Status: Acute Category: Medical (9) Smoking (tobacco) complicating , third trimester Current visit: Yes Status: Acute Category: Medical Code(s): O99.333 - Smoking (tobacco) complicating , third trimester (10) Vaginal delivery Current visit: Yes Status: Acute Category: Medical Code(s): O80 - Encounter for full-term uncomplicated delivery
--- NOTE | 2017-08-31 15:25 | Progress Note ---
Internal Medicine - PN: Subj *Date: 08/31/17 *Time: 15:24 (Doing well. Abdomen soft. Discharge tomorrow.) Exam Vital signs and Labs for Last 24 Hours: Temp Pulse Resp BP Pulse Ox 97.5 F L 108 H 22 140/71 98 08/29/17 16:20 08/29/17 16:20 08/29/17 16:20 08/29/17 16:20 08/29/17 16:20 I & O for Last 24 hours: Intake & Output 08/29/17 08/30/17 08/31/17 09/01/17 11:59 11:59 11:59 11:59 Weight 167 lb Assessment and Plan (1) with 35 completed weeks gestation Current visit: Yes Status: Acute Category: Medical Code(s): Z3A.35 - 35 weeks gestation of (2) Active labor Current visit: Yes Status: Acute Category: Medical Code(s): O60.10X0 - labor with delivery, unspecified trimester, not applicable or unspecified (3) Insufficient care Current visit: Yes Status: Acute Category: Medical Code(s): O09.30 - Supervision of with insufficient care, unspecified trimester (4) Rh negative status during in third trimester Current visit: Yes Status: Acute Category: Medical Code(s): O09.893 - Supervision of other high risk pregnancies, third trimester; Z67.91 - Unspecified blood type, Rh negative (5) Medication not administered Current visit: Yes Status: Acute Category: Medical (6) Rubella non-immune status, antepartum Current visit: Yes Status: Acute Category: Medical Code(s): O99.89 - Other specified diseases and conditions complicating , childbirth and the puerperium; Z28.3 - Underimmunization status (7) Anemia complicating in third trimester Current visit: Yes Status: Acute Category: Medical Code(s): O99.013 - Anemia complicating , third trimester (8) Screening for group B Streptococcus not performed Current visit: Yes Status: Acute Category: Medical (9) Smoking (tobacco) complicating , third trimester Current visit: Yes Status: Acute Category: Medical Code(s): O99.333 - Smoking (tobacco) complicating , third trimester (10) Vaginal delivery Current visit: Yes Status: Acute Category: Medical Code(s): O80 - Encounter for full-term uncomplicated delivery
--- NOTE | 2017-09-01 17:15 | Discharge Summary ---
DS: Providers Date of admission: 08/29/17 16:51 Primary care physician: Alex Hodges MD Attending physician on admission: Shae Shipman Consults: 08/29/17 17:33 Care Management Consult [Consult to Case Management] [CONS] Routine Comment: LIMITED PNC, + FOR MJ AND BENZO DURING Attending physician on discharge: Shae Shipman Anticipated date of discharge: 09/01/17 DS: Diagnosis - Discharge Diagnosis (1) with 35 completed weeks gestation Status: Acute (2) Active labor Status: Acute (3) Insufficient care Status: Acute (4) Vaginal delivery Status: Acute (5) Rh negative status during in third trimester Status: Acute (6) Medication not administered Status: Acute (7) Rubella non-immune status, antepartum Status: Acute (8) Anemia complicating in third trimester Status: Acute (9) Screening for group B Streptococcus not performed Status: Acute (10) Smoking (tobacco) complicating , third trimester Status: Acute DS: Medications - Discharge Medications Prescriptions: New Ibuprofen [Motrin 400mg tablet] 400 mg PO Q4HP PRN #30 tab PRN Reason: MILD/MODERATE PAIN Continue Ferrous Sulfate 325 mg PO DAILY Vit37/Iron/Folic Acid [Prenata Chewable Tablet] 1 tab PO DAILY Discontinued Nitrofurantoin Monohyd/M-Cryst [Macrobid 100 mg Capsule] 100 mg PO BID 7 Days #14 capsule OB - DS: Summary Hospital course: Ms. Ellis is a 22 year old female Time spent discussing smoking cessation with patient: 3 to 10 minutes - Peripartum Data Delivery method: spontaneous vaginal delivery Laceration description: Perineal - 2nd Degree - Status at Discharge Functional status at discharge: independent ambulation Overall status at discharge: patient is progressing back to baseline - Time Spent with Patient Total time spent providing and/or coordinating discharge services: Greater than 30 minutes (extensive counseling re: care and Rh isoimmunization risk & sequelae) Specific discharge activities: Pelvic rest x 6 weeks (until cleared by MD at visit) Exam Vital signs and Labs for Last 24 Hours: Temp Pulse Resp BP Pulse Ox 97.5 F L 108 H 22 140/71 98 08/29/17 16:20 08/29/17 16:20 08/29/17 16:20 08/29/17 16:20 08/29/17 16:20 I & O for Last 24 hours: Intake & Output 08/30/17 08/31/17 09/01/17 09/02/17 11:59 11:59 11:59 11:59 Weight 167 lb - Constitutional no acute distress, cooperative - *Routine HEENT Exam Head: Present: normocephalic, atraumatic Eye: Absent: conjunctival icterus, scleral injection - *Routine Respiratory Exam Absent: respiratory distress, wheezes - *Routine Cardiovascular Exam Absent: tachycardia, JVD - *Routine Abdominal Exam Present: soft. Absent: tenderness, distended, guarding - *Routine Extremities Exam Absent: edema - *Routine Skin Exam Present: intact, dry, warm. Absent: rash - *Routine Neurological Exam Present: alert, oriented X3, moving all extremities, normal speech. Absent: abnormal gait - Routine Psychiatric Exam Present: normal affect. Absent: depressed, anxious Discharge Plan - Patient Discharge Instructions - Follow up Plan Disposition: Home, Self-Detention Medications: Home Medications Medication Instructions Recorded Confirmed Type Vit37/Iron/Folic Acid 1 tab PO DAILY 04/18/17 08/30/17 History [Prenata Chewable Tablet] Ferrous Sulfate 325 mg PO DAILY 06/30/17 08/29/17 History Prescriptions/Medication Reconciliation: No Action Ferrous Sulfate 325 mg PO DAILY Vit37/Iron/Folic Acid [Prenata Chewable Tablet] 1 tab PO DAILY Nitrofurantoin Monohyd/M-Cryst [Macrobid 100 mg Capsule] 100 mg PO BID 7 Days #14 capsule - Additional Information Additional Information: Follow up appointment 6 weeks for visit
== END 2017-09-01 18:00 | disposition home or self-care (01) ==
LOC: OBOUT 15:52 → OB 15:55
PROVIDERS: ADMIT Obstetrics & Gynecology; ATTEND Obstetrics & Gynecology

== ENCOUNTER → 2018-09-29 15:42 | Outpatient (CLI) | payer OTHER, SELFPAY ==
[2018-09-29 16:29] LABS: Basophils % 0.2 % (0.1-2.0); Eosinophils # 0.1 K/mm3 (0.0-0.4); Eosinophils % 1.1 % (0.1-12.0); Hematocrit 34.1 % (37.0-47.0); Lymphocytes # 1.7 K/mm3 (0.7-4.5); Lymphocytes % 25.3 % (10-50); Mean Corpuscular HGB Conc 32.1 g/dL (31.8-35.4); Mean Corpuscular Hemoglobin 29.6 pg (27.0-31.2); Mean Corpuscular Volume 92.2 fl (81-99); Mean Platelet Volume 9.6 fl (7.4-10.4); Monocytes # 0.2 K/mm3 (0.1-1.0); Monocytes % 3.4 % (1.7-9.3); Neutrophils # 4.6 K/mm3 (1.8-7.8); Neutrophils % 69.9 % (37.0-80.0); Platelet Count 210 K/mm3 (142-424); Red Cell Distribution Width 13.6 % (11.5-17.5); White Blood Count 6.6 K/mm3 (4.8-10.8)
[2018-09-29 17:04] LABS: Thyroid Stimulating Hormone 1.21 uIU/ml (0.358-3.740)
[2018-09-29 17:20] LABS: Amphetamine/Metha Screen,Urine Negative ng/mL (<1000); Barbiturates Screen,Urine Negative ng/mL (<200); Benzodiazepines Screen,Urine Negative ng/mL (<200); Cannabinoid Screen,Urine Negative ng/mL (<50); Cocaine Screen,Urine Negative ng/mL (<300); Methadone Screen,Urine Negative ng/mL (<300); Opiate Screen,Urine Negative ng/mL (<300); Phencyclidine Screen,Urine Negative ng/mL (<25)
[2018-10-01 08:13] LABS: HIV Screen 4th Generation wRfx Non Reactive (Non Reactive)
[2018-10-01 18:46] LABS: Hepatitis B Surface Antigen Negative (Negative); Hepatitis C Antibody <0.1 s/co ratio (0.0-0.9); Rapid Plasma Reagin Ab Titer Non Reactive (NonRea<1:1); Rubella Antibodies, IgG <0.90 index (Immune >0.99)
== END ==
PROVIDERS: Visit Provider Obstetrics & Gynecology
DX: Z34.90 Encounter for supervision of normal pregnancy, unspecified, unspecified trimester (principal)
CPT/HCPCS: 36415; 80305; 84443; 85025; 86592; 86703; 86762; 86850; 87340; 87380; G0432

== ENCOUNTER → 2018-10-24 10:10 | Outpatient (CLI) | payer OTHER, SELFPAY ==
[2018-10-26 00:07] LABS: AFP Value 39.3 ng/mL (.); DIA MoM 0.96 (.); DIA Value 176.43 pg/mL (.); DSR (Second Trimester) 1 IN 10000 (.); OSBR Risk 1 IN 10000 (.); Results Report (.); uE3 MoM 2.05 (.)
[2018-10-26 05:20] LABS: Gestat. Age Based On EDD (.)
== END ==
PROVIDERS: Visit Provider Obstetrics & Gynecology
DX: Z34.90 Encounter for supervision of normal pregnancy, unspecified, unspecified trimester (principal)
CPT/HCPCS: 36415; 82106

== ENCOUNTER 2019-01-23 10:26 | Outpatient (CLI) | payer OTHER, SELFPAY ==
[2019-01-23 12:10] LABS: Glucose 1 Hour 63 mg/dL (74-106)
[2019-01-23 12:15] VITALS: BP 102/65; PULSE 81; RESP 18; O2SAT 100
== END 2019-01-23 12:27 | disposition home or self-care (01) ==
LOC: LAB 10:26 → INF 12:11
PROVIDERS: Visit Provider Obstetrics & Gynecology
DX: Z34.90 Encounter for supervision of normal pregnancy, unspecified, unspecified trimester (principal)
CPT/HCPCS: 36415; 96372; J2790